=== PATIENT | male | born 1970 | race Caucasian/White ===

== ENCOUNTER 2017-09-07 11:01 | Emergency (ER) | payer MEDICAID ==
[2017-09-07 11:35] VITALS: BP 142/79; PULSE 73; RESP 16; TEMP 98; O2SAT 96
[2017-09-07] MEDS ORDERED: PRIL20TA2 (11:44)
[2017-09-07] MEDS ORDERED: SODIUM CHLOR 0.9% 1000 ML INJ 1,000 ML IV SCH (12:00)
[2017-09-07] MEDS ORDERED: SODIUM CHLORIDE 0.9% FLUSH 10 ML FLUSH IV FLUSH PRN (12:00)
[2017-09-07 12:20] VITALS: PULSE 68; RESP 18; O2SAT 99
[2017-09-07] MEDS ORDERED: LOMO2.5T PO (12:27)
--- NOTE | 2017-09-07 12:28 | PD ---
HPI Chief Complaint: GI Complaint Time Seen by Provider: 11:48 Travel History International Travel<30 days: No Contact w/Intl Traveler<30days: No Traveled to known affect area: No History of Present Illness HPI 47-year-old male complains of diarrhea 6-7 episodes daily for the past several months. He drinks alcohol daily at least a few drinks. He smokes tobacco. He denies drug abuse. He denies fever. He reports yellow stool times. Occasional vomiting of yellow emesis noted. No fever. No significant abdominal pain. He has not tried [id number] medications. The patient denies any variance in the diet either as a means to help or has a potential cause. PFSH Past Medical History Anxiety: Yes Depression: Yes GERD: Yes Past Surgical History Surgical History: No Previous Surgery Social History Alcohol Use: Yes Tobacco Use: Yes Substance Use: No Allergies-Medications (Allergen,Severity, Reaction): Coded Allergies: No Known Allergies (Unverified , 09/07/17) Reported Meds & Prescriptions Reported Meds & Active Scripts Active Lomotil (Diphenoxylate-Atropine) 2.5-0.025 Mg Tab 1 Tab PO Q6H PRN Reported Prilosec (Omeprazole Magnesium) 20 Mg Tab Review of Systems Except as stated in HPI: all other systems reviewed are Neg General / Constitutional: No: Fever Physical Exam Narrative GENERAL: 47-year-old male well-nourished well-developed Vital Signs Date Time Temp Pulse Resp B/P (MAP) Pulse Ox O2 Delivery O2 Flow Rate FiO2 09/07/17 12:20 68 18 99 Room Air 09/07/17 11:35 98.0 73 16 142/79 (100) 96 SKIN: Warm and dry. No jaundice. HEAD: Atraumatic. Normocephalic. EYES: Pupils equal and round. No scleral icterus. No injection or drainage. ENT: No nasal bleeding or discharge. Mucous membranes pink and moist. NECK: Trachea midline. No JVD. CARDIOVASCULAR: Regular rate and rhythm. RESPIRATORY: No accessory muscle use. Clear to auscultation. Breath sounds equal bilaterally. GASTROINTESTINAL: No hepatomegaly. Soft. MUSCULOSKELETAL: Extremities without clubbing, cyanosis, or edema. No obvious deformities. NEUROLOGICAL: Awake and alert. No obvious cranial nerve deficits. Motor grossly within normal limits. Five out of 5 muscle strength in the arms and legs. Normal speech. PSYCHIATRIC: Appropriate mood and affect; insight and judgment normal. Data Data Last Documented VS Vital Signs Date Time Temp Pulse Resp B/P (MAP) Pulse Ox O2 Delivery O2 Flow Rate FiO2 09/07/17 12:20 68 18 99 Room Air 09/07/17 11:35 98.0 142/79 (100) Orders Orders Complete Blood Count With Diff (09/07/17 12:00) Comprehensive Metabolic Panel (09/07/17 12:00) Lipase (09/07/17 12:00) Iv Access Insert/Monitor (09/07/17 12:00) Ecg Monitoring (09/07/17 12:00) Oximetry (09/07/17 12:00) Sodium Chlor 0.9% 1000 Ml Inj (Ns 1000 M (09/07/17 12:00) Sodium Chloride 0.9% Flush (Ns Flush) (09/07/17 12:00) Potassium Chloride (Kcl) (09/07/17 13:00) Labs Laboratory Tests Test 09/07/17 12:20 White Blood Count 9.8 TH/MM3 Red Blood Count 4.33 MIL/MM3 Hemoglobin 14.6 GM/DL Hematocrit 41.2 % Mean Corpuscular Volume 95.1 FL Mean Corpuscular Hemoglobin 33.6 PG Mean Corpuscular Hemoglobin Concent 35.3 % Red Cell Distribution Width 13.2 % Platelet Count 346 TH/MM3 Mean Platelet Volume 7.3 FL Neutrophils (%) (Auto) 58.4 % Lymphocytes (%) (Auto) 32.2 % Monocytes (%) (Auto) 7.2 % Eosinophils (%) (Auto) 0.8 % Basophils (%) (Auto) 1.4 % Neutrophils # (Auto) 5.7 TH/MM3 Lymphocytes # (Auto) 3.1 TH/MM3 Monocytes # (Auto) 0.7 TH/MM3 Eosinophils # (Auto) 0.1 TH/MM3 Basophils # (Auto) 0.1 TH/MM3 CBC Comment DIFF FINAL Differential Comment Blood Urea Nitrogen 8 MG/DL Creatinine 0.59 MG/DL Random Glucose 75 MG/DL Total Protein 7.7 GM/DL Albumin 3.8 GM/DL Calcium Level 8.9 MG/DL Alkaline Phosphatase 116 U/L Aspartate Amino Transf (AST/SGOT) 103 U/L Alanine Aminotransferase (ALT/SGPT) 75 U/L Total Bilirubin 0.8 MG/DL Sodium Level 138 MEQ/L Potassium Level 3.2 MEQ/L Chloride Level 105 MEQ/L Carbon Dioxide Level 23.6 MEQ/L Anion Gap 9 MEQ/L Estimat Glomerular Filtration Rate 148 ML/MIN Lipase 112 U/L MDM Medical Decision Making Medical Screen Exam Complete: Yes Emergency Medical Condition: Yes Medical Record Reviewed: Yes Differential Diagnosis Constipation, Gastritis, Acute Cholecystitis, Biliary Colic, Pancreatitis, SANCHEZ , Hepatitis, Bowel Obstruction, Cystitis, Mesenteric Ischemia, AAA, Appendicitis , Renal Stone/Hydronephrosis, GERD, perforated viscous Narrative Course Diet and lifestyle modification discussed. Cessation of drinking advised. CBC & BMP Diagram 09/07/17 12:20 Total Protein 7.7, Albumin 3.8, Calcium Level 8.9, Alkaline Phosphatase 116, Aspartate Amino Transf (AST/SGOT) 103 H, Alanine Aminotransferase (ALT/SGPT) 75 , Total Bilirubin 0.8 Diagnosis Primary Impression: Diarrhea Qualified Codes: R19.7 - Diarrhea, unspecified Additional Impressions: Hypokalemia Elevated AST (SGOT) Referrals: Primary Care Physician Med/Other Pt SpecificInfo: Prescription(s) given Scripts Diphenoxylate-Atropine (Lomotil) 2.5-0.025 Mg Tab 1 TAB PO Q6H Y for DIARRHEA, #10 TAB 0 Refills Prov: Lance Fuentes MD 09/07/17 Disposition: 01 DISCHARGE HOME Condition: Stable Lance Fuentes MD Sep 07, 2017 12:28
[2017-09-07 12:29] LABS: AUTOMATED NEUTROPHIL # 5.7 TH/MM3 (1.8-7.7); BASOPHIL # 0.1 TH/MM3 (0-0.2); BASOPHIL % 1.4 % (0.0-2.0); EOSINOPHIL # 0.1 TH/MM3 (0-0.4); EOSINOPHIL % 0.8 % (0.0-4.0); HEMATOCRIT 41.2 % (39.0-51.0); HEMOGLOBIN 14.6 GM/DL (13.0-17.0); LYMPH % 32.2 % (9.0-44.0); LYMPHOCYTE # 3.1 TH/MM3 (1.0-4.8); MEAN CELL VOLUME 95.1 FL (80.0-100.0); MEAN CORPUSCULAR HEMOGLOBIN 33.6 PG (27.0-34.0); MEAN CORPUSCULAR HGB CONC 35.3 % (32.0-36.0); MEAN PLATELET VOLUME 7.3 FL (7.0-11.0); MONO % 7.2 % (0.0-8.0); MONOCYTE # 0.7 TH/MM3 (0-0.9); NEUT % 58.4 % (16.0-70.0); PLATELET COUNT 346 TH/MM3 (150-450); RED BLOOD COUNT 4.33 MIL/MM3 (4.50-5.90); RED CELL DISTRIBUTION WIDTH 13.2 % (11.6-17.2); WHITE BLOOD COUNT 9.8 TH/MM3 (4.0-11.0)
[2017-09-07 12:41] LABS: ALBUMIN 3.8 GM/DL (3.4-5.0); ALT (GPT) 75 U/L (12-78); AST (GOT) 103 U/L (15-37); BICARBONATE 23.6 MEQ/L (21.0-32.0); BLOOD UREA NITROGEN 8 MG/DL (7-18); CALCIUM 8.9 MG/DL (8.5-10.1); CHLORIDE 105 MEQ/L (98-107); CREATININE 0.59 MG/DL (0.60-1.30); GLOMERULAR FILTRATION RATE 148 ML/MIN (>89); GLUCOSE,RANDOM 75 MG/DL (74-106); SODIUM (NA) 138 MEQ/L (136-145)
[2017-09-07 12:43] LABS: ALKALINE PHOSPHATASE 116 U/L (45-117); TOTAL BILIRUBIN ADULT 0.8 MG/DL (0.2-1.0); TOTAL PROTEIN 7.7 GM/DL (6.4-8.2)
[2017-09-07] MEDS ORDERED: POTASSIUM CHLORIDE 20 MEQ CONTROLLED RELEASE TAB PO ONE (13:00)
== END 2017-09-07 13:53 | disposition home or self-care (01) ==
LOC: NEPD 11:01
DX: R19.7 Diarrhea, unspecified (principal); E87.6 Hypokalemia; R74.0 Nonspecific elevation of levels of transaminase and lactic acid dehydrogenase [LDH]; F32.9 Major depressive disorder, single episode, unspecified; F41.9 Anxiety disorder, unspecified; K21.9 Gastro-esophageal reflux disease without esophagitis; Z72.0 Tobacco use
CPT/HCPCS: 80053; 83690; 85025; 99283; J7030